=== PATIENT | female | born 1960 | race African-American/Black ===

== ENCOUNTER 2018-05-16 06:16 | Emergency (ER) | payer MEDICAID ==
[~2018-05-16] VITALS: Ht 162.6 cm; Wt 63.1 kg
[~2018-05-16 06:16] MED LIST: LEVO125T8 PO
[2018-05-16 07:28] LABS: CLARITY URINE CLEAR (CLEAR); COLOR URINE YELLOW (YELLOW); KETONES URINE NEGATIVE (NEGATIVE); LEUKOCYTE ESTERASE URINE NEGATIVE (NEGATIVE); NITRITE URINE NEGATIVE (NEGATIVE); OCCULT BLOOD URINE NEGATIVE (NEGATIVE); PH URINE 5.5 (4.5-8.0); PROTEIN URINE NEGATIVE (NEGATIVE); SPECIFIC GRAVITY URINE 1.009 (1.005-1.030); UROBILINOGEN URINE 0.2 E.U./dL (0.2-1.0)
[2018-05-16 10:49] VITALS: BP 132/74
== END 2018-05-16 10:51 | disposition home or self-care (01) ==
LOC: ER 06:16
DX: R10.32 Left lower quadrant pain (principal); N85.8 Other specified noninflammatory disorders of uterus; F17.210 Nicotine dependence, cigarettes, uncomplicated
CPT/HCPCS: 76830; 76856; 81003; 81025; 99285